=== PATIENT | male | born 1975 | race Caucasian/White ===

== ENCOUNTER → 2016-10-23 | Outpatient (CLI) | payer OTHER ==
[~2016-10-23] MED LIST: CIPRO 500MG TA500 MG PO; FLOMAX0.4 MG PO; NAPROSYN500 MG PO; NO HOME MEDICATIONS; PERCOCET 325 MG1 TA2 PO; PHENERGAN 25 TA25 MG PO
== END ==
LOC: COL.RAD 09:09
DX: N20.0 Calculus of kidney (principal)
CPT/HCPCS: Q9967

== ENCOUNTER 2018-12-05 09:55 | Observation (INO) | payer OTHER ==
[~2018-12-05] VITALS: Ht 182.9 cm; Wt 109.0 kg
[2018-12-05] MEDS ORDERED: CLARITIN 1010 MG/TAB PO (10:04)
[2018-12-05] MEDS ORDERED: MOTRIN 400400 MG/TAB PO (10:04)
[2018-12-05 10:28] LABS: COLLECTION METHOD CLEAN CATCH
[2018-12-05 10:31] LABS: BASO % 0.3 % (0.0-2.0); EOS % 0.3 % (0-4.0); GRAN % 83.9 % (42.2-75.2); HEMATOCRIT 44.4 % (42.0-52.0); HEMOGLOBIN 15.3 g/dl (13.5-18.0); LYMPH # 1.2 (1.2-3.4); LYMPH % 10.2 % (20.0-51.0); MEAN CELL VOLUME 90 fl (80.0-100.0); MEAN CORPUSCULAR HEMOGLOBIN 31 pg (27.0-31.0); MEAN CORPUSCULAR HGB CONC 35 g/dl (33.0-37.0); MEAN PLATELET VOLUME 8.8 fl (7.4-10.4); MONO # 0.6 (0.1-0.6); PLATELET COUNT 299 K/mm3 (130-400); RED BLOOD COUNT 4.95 M/mm3 (4.20-5.60); REDCELL DISTRIBUTION WIDTH-CV 12.2 % (11.5-14.5)
[2018-12-05 10:42] LABS: PH 7 (5-8); SQUAMOUS EPITHELIAL None Seen /hpf; URINE APPEARANCE Clear; URINE BACTERIA None Seen /hpf; URINE BILIRUBIN Negative (NEGATIVE); URINE BLOOD 3+ (NEGATIVE); URINE COLOR Straw; URINE GLUCOSE Negative (NEGATIVE); URINE KETONE Negative (NEGATIVE); URINE LEUKOCYTE ESTERASE Negative (NEGATIVE); URINE NITRATE Negative (NEGATIVE); URINE PROTEIN(semi-quant) Negative (NEGATIVE); URINE UROBILINOGEN Negative (NEGATIVE)
[2018-12-05 10:44] LABS: ALBUMIN 4.4 gm/dL (3.5-5.0); BILIRUBIN,TOTAL 0.6 mg/dL (0.0-1.0); C-REACTIVE PROTEIN 1.2 mg/dL (0.0-0.9); CALCIUM 9.3 mg/dL (8.4-10.2); CREATININE, serum 0.91 (0.66-1.25); POTASSIUM 4.3 mmol/L (3.4-5.0); TOTAL PROTEIN 8.3 gm/dL (6.4-8.2)
[2018-12-05] MEDS ORDERED: NORCO 325 MG-51 TAB PO (11:21)
[2018-12-05] MEDS ORDERED: ZOFRAN ODT4 MG PO (11:21)
[2018-12-05] MEDS ORDERED: FLOMAX 0.40.4 MG/CAP PO (11:21)
[2018-12-05 12:11] VITALS: BP 169/102; PULSE 62; TEMP 98.3
--- NOTE | 2018-12-05 12:30 | NUR ---
Pt arrived via wheelchair to 321-2. AAOx4 stating pain well controlled and nausea subsided. Pt ambulating/pacing in room, spouse present. MD Kain present [id number] - plan to perform operation in stones have not passed within 2hours.
[2018-12-05 16:45] VITALS: BP 150/70; PULSE 65; TEMP 98
--- NOTE | 2018-12-05 16:50 | NUR ---
Pt arrived back to room, spouse at bedside. Assisted pt to bathroom to void. Pt voided clear slight pink tinged yellow urine without pain. Pt ambulated without difficulty. Pt AOx4. VSS. Head to toe assessment within normal limits - no changes from baseline.
[2018-12-05 17:00] VITALS: BP 130/80; PULSE 65
[2018-12-05 17:13] VITALS: BP 135/80; PULSE 63; TEMP 97.8
[2018-12-05 17:17] VITALS: BP 109/78; PULSE 80
== END 2018-12-05 18:00 | disposition home or self-care (01) ==
LOC: COL.ER 09:55 → SURG 11:33
PROVIDERS: Physician Assistant; ADMIT Urology
DX: N20.1 Calculus of ureter (principal); Z84.1 Family history of disorders of kidney and ureter; M19.019 Primary osteoarthritis, unspecified shoulder
CPT/HCPCS: C1769; C2617; G0378; J0690; J1170; J1885; J2405; J2704; J3010; J7030; J7120; Q9967

== ENCOUNTER → 2019-04-08 | Outpatient (CLI) | payer OTHER ==
[~2019-04-08] MED LIST changes: +CLARITIN 1010 MG/TAB PO; +FLOMAX 0.40.4 MG/CAP PO; +MOTRIN 400400 MG/TAB PO; +NORCO 325 MG-51 TAB PO; +ZOFRAN ODT4 MG PO
== END ==
LOC: COL.RAD 09:19
DX: M25.511 Pain in right shoulder (principal)
CPT/HCPCS: J3301; Q9967